=== PATIENT | female | born 1955 | race Caucasian/White ===

== ENCOUNTER 2020-07-20 18:07 | Inpatient (IN) | payer MEDICARE ==
[~2020-07-20] VITALS: Ht 157.5 cm; Wt 114.8 kg
[2020-07-20 18:37] LABS: HEMOGLOBIN 16.1 gm/dl (12.3-15.3); RED BLOOD COUNT 5.42 M/UL (4.00-5.10); WHITE BLOOD COUNT 7.8 K/UL (4.5-11.0)
[2020-07-20 19:03] LABS: BUN/CREATININE RATIO 15 (0-10)
[2020-07-21 00:18] LABS: BUN/CREATININE RATIO 13 (0-10)
[2020-07-22 06:07] LABS: HEMOGLOBIN 15.1 gm/dl (12.3-15.3); WHITE BLOOD COUNT 8.3 K/UL (4.5-11.0)
[2020-07-22 06:14] LABS: RED BLOOD COUNT 5.11 M/UL (4.00-5.10)
[2020-07-22 06:56] LABS: BUN/CREATININE RATIO 16 (0-10)
--- NOTE | 2020-07-22 10:11 | NUR ---
0915: TELE DESK CALLED REGARDING DROP INSPO2. RN CHECKED PATIENT WITH HAND HELD SPO2 MONITOR AND NOTED 98%. 919: TELE DESK SENT RESCOURCE RN TO ROOM, PRIMARY RN IN ROOM, PATIENT DENIES ANY SOA AND NO S/S RESPIRATORY DISTRESS. RESCOURCE RN PRESENT FOR SPO2 CHECK OF 98%. RN CALLED TELE DESK TO INFORM THAT PATIENT WAS IN NO DISTRESS AND SPO2 WAS WNL. TELE TO SEND NEW BOX. 924: NEW BOX APPLIED SPO2 NOTED AT 93%. PATIENT CONTINUES TO DENY ANY C/O RESPIRATORY DISTRESS.
[2020-07-23 03:14] LABS: HEMOGLOBIN 15.4 gm/dl (12.3-15.3); RED BLOOD COUNT 5.18 M/UL (4.00-5.10); WHITE BLOOD COUNT 8.1 K/UL (4.5-11.0)
[2020-07-23 03:38] LABS: BUN/CREATININE RATIO 17 (0-10)
--- NOTE | 2020-07-24 03:26 | NUR ---
APPROX. 0230: PT'S O2 SATURATION DROPPED TO 83%. I ENTERED PT'S ROOM AND PT'S HOME CPAP MACHINE WAS NOT WORKING PROPERLY. PT WAS PLACED BACK ON 4L NC. PT WAS VERY ANXIOUS ABOUT WEARING THE HOSPITAL CPAP MACHINE, BECAUSE SHE DIDN'T UNDERSTAND HOW TO UNSNAP IT TO REMOVE IT. I EDUCATED THE PT ON HOW TO PROPERLY REMOVE THE CPAP MACHINE. THE PT DEMONSTRATED REMOVING THE CPAP BACK TO ME. I STAYED WITH THE PT AND ADDRESSED ALL QUESTIONS AND CONCERNS REGARDING THE CPAP MACHINE. I REASSURED HER THAT SHE WAS ON A CONTINUOUS TELEMETRY AND PULSE OX MONITOR SO THAT I COULD MONITOR HER OXYGEN 06/10. PT FELT COMFORTABLE WITH WEARING THE CPAP MACHINE. PT'S O2 SATURATION RETURNED TO 95%. ENCOURAGED PT TO CALL OUT IF SHE NEEDED ANYTHING. CALL LIGHT WAS PLACED WITHIN REACH. CALLED RESPIRATORY TO COME GIVE PT A BREATHING TREATMENT.
[2020-07-24 03:50] LABS: BUN/CREATININE RATIO 18 (0-10)
[2020-07-24] MEDS ORDERED: LISINOPRIL2.5 MG PO (08:41)
[2020-07-24] MEDS ORDERED: SYMBICORT 160-1 INHA INH (08:41)
[2020-07-24] MEDS ORDERED: IPRAT-ALBUT 0.5-3 ML INH (08:41)
[2020-07-24] MEDS ORDERED: LASIX40 MG PO (08:41)
[2020-07-24] MEDS ORDERED: DIAMOX 250 MG250 MG PO (08:41)
[2020-07-24] MEDS ORDERED: ASPIRIN EC81 MG PO (08:41)
[2020-07-24] MEDS ORDERED: K-DUR TAB 20 M20 MEQ PO (08:41)
[2020-07-24] MEDS ORDERED: COMPACT COMPRE1 EACH MC (08:49)
--- NOTE | 2020-07-24 14:31 | NUR ---
INSTRUCTED PATIENT AND FAMILY ABOUT DAILY WEIGHT LOG AND RECORFDING WEIGHT TO ASSIST WITH WEIGHT GAIN. SIGNS AND SYMPTOMS OF CHF. NEW SCRIPTS, VERBALIZED UNDERSTANDING. Wali CASTILLO,
== END 2020-07-24 15:33 | disposition home health service (06) | DRG 291 ==
LOC: ER1 18:07 → CDU 20:55 → MED SURG 4 20:55
PROVIDERS: Family Medicine; Physician Assistant; ADMIT Internal Medicine
PROC: B24BZZ4 Ultrasonography of Heart with Aorta, Transesophageal (ICD-10-PCS; principal; 2020-07-21)
DX: I50.813 Acute on chronic right heart failure (principal); J96.21 Acute and chronic respiratory failure with hypoxia; Z68.42 Body mass index [BMI] 45.0-49.9, adult; I47.1 Supraventricular tachycardia; E66.2 Morbid (severe) obesity with alveolar hypoventilation; Z20.822 Contact with and (suspected) exposure to COVID-19; J44.9 Chronic obstructive pulmonary disease, unspecified; F17.210 Nicotine dependence, cigarettes, uncomplicated; D75.1 Secondary polycythemia; I07.1 Rheumatic tricuspid insufficiency; I87.8 Other specified disorders of veins; Z79.82 Long term (current) use of aspirin; Z98.51 Tubal ligation status; Z90.49 Acquired absence of other specified parts of digestive tract; Z80.0 Family history of malignant neoplasm of digestive organs; Z82.49 Family history of ischemic heart disease and other diseases of the circulatory system
CPT/HCPCS: ECHO; 0240U; 36415; 36600; 71045; 80048; 80053; 80061; 82550; 82553; 82803; 83036; 83735; 83874; 83880; 84100; 84484; 85025; 93005; 93306; 94640; 94660; 94664; 94760; 99285; J1650; J1940

== ENCOUNTER → 2020-07-30 | Outpatient (CLI) | payer MEDICARE ==
[~2020-07-30] MED LIST: ASPIRIN EC81 MG PO; COMPACT COMPRE1 EACH MC; DIAMOX 250 MG250 MG PO; IPRAT-ALBUT 0.5-3 ML INH; K-DUR TAB 20 M20 MEQ PO; LASIX40 MG PO; LISINOPRIL2.5 MG PO; SYMBICORT 160-1 INHA INH
[2020-07-30 16:13] LABS: BUN/CREATININE RATIO 22 (0-10)
== END ==
LOC: LAB 15:25
PROVIDERS: Internal Medicine
DX: I50.33 Acute on chronic diastolic (congestive) heart failure (principal)
CPT/HCPCS: 80048

== ENCOUNTER → 2020-08-07 | Outpatient (CLI) | payer MEDICARE | LOC: EXRD 10:46 | DX: I50.30 Unspecified diastolic (congestive) heart failure (principal); R91.8 Other nonspecific abnormal finding of lung field | CPT/HCPCS: 71046 ==

== ENCOUNTER → 2021-03-11 | Outpatient (CLI) | payer MEDICARE | LOC: KOH-I 13:36 | DX: Z87.891 Personal history of nicotine dependence (principal); R91.8 Other nonspecific abnormal finding of lung field | CPT/HCPCS: 71271 ==

== ENCOUNTER → 2021-05-14 | Outpatient (CLI) | payer MEDICARE | LOC: HEART 5 04-16 09:15 | DX: I50.30 Unspecified diastolic (congestive) heart failure (principal); I47.2 Ventricular tachycardia | CPT/HCPCS: 78452; A9502; J2785 ==

== ENCOUNTER → 2021-07-09 | Outpatient (CLI) | payer MEDICARE | LOC: HEART 5 12:37 | DX: I50.30 Unspecified diastolic (congestive) heart failure (principal); R06.02 Shortness of breath; I08.3 Combined rheumatic disorders of mitral, aortic and tricuspid valves | CPT/HCPCS: 93306 ==

== ENCOUNTER → 2021-09-05 | Outpatient (CLI) | payer MEDICARE | LOC: KOH-I 14:41 | DX: R91.1 Solitary pulmonary nodule (principal) | CPT/HCPCS: 71250 ==

== ENCOUNTER → 2021-10-10 | Outpatient (CLI) | payer MEDICARE | LOC: KOH-I 08:00 | DX: Q44.1 Other congenital malformations of gallbladder (principal); K76.0 Fatty (change of) liver, not elsewhere classified; K82.8 Other specified diseases of gallbladder | CPT/HCPCS: 76700 ==

== ENCOUNTER → 2021-11-13 | Outpatient (CLI) | payer MEDICARE | LOC: NM 08:34 | DX: Q44.1 Other congenital malformations of gallbladder (principal) | CPT/HCPCS: 78227; A9537 ==